=== PATIENT | female | born 1955 | race Caucasian/White ===

== ENCOUNTER → 2016-12-04 | Outpatient (CLI) | payer BC ==
--- NOTE | 2016-12-09 18:19 | PULMONARY FUNCTION TEST ---
INTERPRETATION: The spirometry reveals mild obstruction with no change in the airflow with the use of albuterol. Lung volumes reveal slight elevation in the residual volume suggesting air trapping with normal total lung capacity. The diffusion capacity when corrected for alveolar volume is increased.
== END | disposition home or self-care (01) ==
LOC: C.RC 10:00
PROVIDERS: ATTEND Family Medicine
DX: J45.909 Unspecified asthma, uncomplicated (principal)

== ENCOUNTER → 2017-07-31 | Outpatient (CLI) | payer OTHER, BC ==
--- NOTE | 2017-07-31 12:26 | DIAGNOSTIC IMAGING REPORT ---
RIGHT WRIST 5 VIEWS, RIGHT HAND 3 VIEWS HISTORY: Right hand pain. Fall. RIGHT WRIST PAIN COMPARISON: None. FINDINGS: There is no fracture or dislocation. Soft tissues are unremarkable. No radiopaque foreign bodies. IMPRESSION: No fracture or dislocation within the right hand or right wrist. Electronically signed by: Luke Sales M.D. 07/31/2017 12:25 PM Dictated Date/Time: 07/31/2017 12:22 PM
== END | disposition home or self-care (01) ==
LOC: C.RAD1850 11:38
PROVIDERS: ATTEND Nurse Practitioner Adult Health
DX: M25.531 Pain in right wrist (principal); M79.641 Pain in right hand; W19.XXXA Unspecified fall, initial encounter